=== PATIENT | male | born 1985 | race Caucasian/White ===

== ENCOUNTER 2018-03-09 09:42 | Emergency (ER) | payer OTHER ==
--- NOTE | 2018-03-09 14:14 | ER ---
DATE SEEN: 03/09/2018 TIME SEEN: The patient was seen at 0953 hours. 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 Two of them were not wearing masks. This gentleman was wearing a mask, but he still has a new mild cough and tightness in the lungs. Denies hemoptysis. He denies dyspnea on exertion. He had a fever yesterday and no longer has a fever today. No sore throat. No sinus congestion, nasal congestion, ear pain, chest pain, irregular heartbeat, abdominal pain, nausea, vomiting, diarrhea, or skin rash. PAST MEDICAL HISTORY: No allergies, no medications, no diabetes, no heart disease, no serious illnesses. I used the [employer] associate. This worked very well on the play robert from [employer]. PHYSICAL EXAMINATION: VITAL SIGNS: Blood pressure 137/74, heart rate 95, respirations 16, oxygen saturation 100%, temperature is 37.7 degrees and normal. HEENT: Without abnormality. No conjunctival injection. NECK: No cervical adenopathy. No tracheal tug. No tracheal deviation. LUNGS: Clear without wheezes, rales, or rhonchi. No intercostal retraction. No subcostal retractions at all. ABDOMEN: Soft. No guarding. No abdominal discomfort. No rashes noted. No turbinate swelling. ASSESSMENT: Ammonia exposure. Mild cough. PLAN: The patient will return to work on 03/13/2018. He is to use mask when gets exposed to ammonia, and appropriate ventilation is necessary to alleviate this current problem in the future. /[id number] CLAUDETTE/ANASTACIA MTDD
== END 2018-03-09 10:45 | disposition home or self-care (01) ==
LOC: FB.ED 09:42
DX: T59.811A Toxic effect of smoke, accidental (unintentional), initial encounter (principal); R05 Cough
CPT/HCPCS: 99283